=== PATIENT | male | born 1995 | race Caucasian/White ===

== ENCOUNTER 2021-01-18 18:58 | Emergency (ER) | payer SELFPAY ==
[~2021-01-18] VITALS: Ht 170.2 cm; Wt 102.0 kg
[2021-01-18] MEDS ORDERED: ALBUTEROL SULFATE 8GM INHALER. INH ONE (21:00)
[2021-01-18] MEDS ORDERED: AZITHROMYCIN 250 MG TABLET. PO ONE (21:00)
[2021-01-18] MEDS ORDERED: predniSONE 20 MG TABLET PO ONE (21:00)
--- NOTE | 2021-01-18 21:30 | RAD ---
AP chest. HISTORY: Cough AP view was taken of the chest. Lungs are clear. Heart is normal in size. There is no effusion. IMPRESSION: 1. No acute chest disease. Electronically signed by: Yuriy Cueto MD (01/18/2021 9:27 PM) [facility]
[2021-01-18 21:59] VITALS: BP 172/77
[2021-01-18] MEDS ORDERED: METH4TAB2 PO (22:15)
[2021-01-18] MEDS ORDERED: AZIT250T6 PO (22:15)
--- NOTE | 2021-01-18 22:15 | PHYS DOC ---
Past History Past Surgical History: Tonsillectomy Additional Past Surgical Histo: Left testical Alcohol Use: None General Adult EDM: Chief Complaint: COUGH HPI: HPI: Patient is a 25-year-old male who presents with cough, shortness of breath, headache for 6 days. Patient states he had a Covid test on Saturday which was negative. Patient denies fevers. Patient states "I usually get bronchitis every year and that is what this feels like". "I have lost all of my taste and smell". Patient has history of bronchitis, smoking. Review of Systems: Review of Systems: Constitutional: Denies fever or chills Eyes: Denies change in visual acuity HENT: Denies nasal congestion or sore throat Respiratory: Reports cough or shortness of breath Cardiovascular: Denies chest pain or edema GI: Denies abdominal pain, nausea, vomiting, bloody stools or diarrhea : Denies dysuria Musculoskeletal: Denies back pain or joint pain Integument: Denies rash Neurologic: Denies headache, focal weakness or sensory changes Endocrine: Denies polyuria or polydipsia Lymphatic: Denies swollen glands Psychiatric: Denies depression or anxiety Current Medications: Current Meds: Current Medications Medications (Trade) Dose Ordered Sig/Dariusz Start Time Stop Time Status Last Admin Dose Admin Albuterol Sulfate (Ventolin Hfa Inhaler) 1 puff 1X ONCE 01/18/21 21:00 01/18/21 21:12 DC 01/18/21 21:24 1 PUFF Azithromycin (Zithromax) 500 mg 1X ONCE 01/18/21 21:00 01/18/21 21:12 DC 01/18/21 21:28 500 MG Prednisone (Prednisone) 60 mg 1X ONCE 01/18/21 21:00 01/18/21 21:12 DC 01/18/21 21:28 60 MG Allergies: Allergies: Allergies Coded Allergies Type Severity Reaction Last Updated Verified bee venom protein (honey bee) Allergy Unknown 01/18/21 Yes sulfamethoxazole Allergy Unknown 01/18/21 Yes trimethoprim Allergy Unknown 01/18/21 Yes Physical Exam: PE: Constitutional: Well developed, well nourished, no acute distress, non-toxic appearance. [] HENT: Normocephalic, atraumatic, bilateral external ears normal, oropharynx moist, no oral exudates, nose normal. [] Eyes: PERRLA, EOMI, conjunctiva normal, no discharge. [] Neck: Normal range of motion, no tenderness, supple, no stridor. [] Cardiovascular:Heart rate regular rhythm, no murmur [] Lungs & Thorax: Bilateral breath sounds clear to auscultation [] Abdomen: Bowel sounds normal, soft, no tenderness, no masses, no pulsatile masses. [] Skin: Warm, dry, no erythema, no rash. [] Back: No tenderness, no CVA tenderness. [] Extremities: No tenderness, no cyanosis, no clubbing, ROM intact, no edema. [] Neurologic: Alert and oriented X 3, normal motor function, normal sensory function, no focal deficits noted. [] Psychologic: Affect normal, judgement normal, mood normal. [] Current Patient Data: Vital Signs: Vital Signs Date Time Temp Pulse Resp B/P (MAP) Pulse Ox O2 Delivery O2 Flow Rate FiO2 01/18/21 21:59 87 16 172/77 (108) 97 Room Air 01/18/21 19:23 98.2 EKG: EKG: [] Radiology/Procedures: Radiology/Procedures: []AP chest. HISTORY: Cough AP view was taken of the chest. Lungs are clear. Heart is normal in size. There is no effusion. IMPRESSION: 1. No acute chest disease. Electronically signed by: Yuriy Cueto MD (01/18/2021 9:27 PM) [facility] Heart Score: C/O Chest Pain: No Risk Factors: Risk Factors: DM, Current or recent (<one month) smoker, HTN, HLP, family history of CAD, obesity. Risk Scores: Score 0 - 3: 2.5% MACE over next 6 weeks - Discharge Home Score 4 - 6: 20.3% MACE over next 6 weeks - Admit for Clinical Observation Score 7 - 10: 72.7% MACE over next 6 weeks - Early Invasive Strategies Course & Med Decision Making: Course & Med Decision Making Pertinent Labs and Imaging studies reviewed. (See chart for details) [] 25-year-old male who presents with cough, shortness of breath, headache for 6 days. Patient states he has a history of bronchitis and usually gets this yearly. Patient is afebrile. Patient is hemodynamically stable. Patient given 60 mg of prednisone, 500 mg azithromycin, albuterol inhaler. Patient given prescription for Medrol Dosepak and also Z-Vernon at home. Chest x-ray was unremarkable. Discharge patient to home. Patient instructed to take ibuprofen and Tylenol for discomfort. Instructed patient to return to emergency room if he has an increase in shortness of breath. Patient states he understands discharge instructions and is appreciative. Josieon Disclaimer: Emmanuel Disclaimer: This electronic medical record was generated, in whole or in part, using a voice recognition dictation system. Departure Departure: Impression: Primary Impression: Bronchitis Disposition: HOME / SELF CARE / HOMELESS Condition: STABLE Referrals: PCP,NO (PCP) Patient Instructions: Acute Bronchitis, [id number] Additional Instructions: You were seen in the emergency room for cough and shortness of breath. Your chest x-ray was negative. You were given steroids, inhaler, antibiotics in the emergency room to help with symptoms. I am also sending you home with prescription for antibiotic and steroids. Please return emergency room if you have worsening symptoms or concerns. Ibuprofen Tylenol for headache. EMERGENCY DEPARTMENT GENERAL DISCHARGE INSTRUCTIONS Thank you for coming to [facility] (ED) today and trusting us with you care. We trust that you had a positivie experience in our Emergency Department. If you wish to speak to the department management, you may call the director at [phone]. YOUR FOLLOW UP INSTRUCTIONS ARE FOLLOWS: 1. Do you have a private Doctor? If you do not have a private doctor, please ask for a resource list of physicians or clinics that may be able to assist you with follow up care. 2. The Emergency Physician has interpreted your x-rays. The X-Ray specialist will also review them. If there is a change in the findings, you will be notified in 48 hours when at all possible. 3. A lab test or culture has been done, your results will be reviewed and you will be notified if you need a change in treatment. ADDITIONAL INSTRUCTIONS AND INFORMATION: 1. Your care today has been supervised by a physician who is specially trained in emergency care. Many problems require more than one evaluation for a complete diagnosis and treatment. We recommend that you schedule your follow up appointment as recommended to ensure complete treatment of you illness or injury. If you are unable to obtain follow up care and continue to have a problem, or if your condition worsens, we recommend that you return to the ED. 2. We are not able to safely determine your condition over the phone nor are we able to give sound medical advice over the phone. For these safety reasons, if you call for medical advice we will ask you to come to the ED for further evaluation. 3. If you have any questions regarding these discharge instructions please call the ED at [phone]. SAFETY INFORMATION: In the interest of safety, wellness, and injury prevention; we encourage you to wear your sealbelt, if you smoke; quite smoking, and we encourage family to use a protective helmet for bicycling and other sporting events that present an increased risk for head injury. IF YOUR SYMPTOMS WORSEN OR NEW SYMPTOMS DEVELOP, OR YOU HAVE CONCERNS ABOUT YOUR CONDITION; OR IF YOUR CONDITION WORSENS WHILE YOU ARE WAITING FOR YOUR FOLLOW UP APPOINTME NT; EITHER CONTACT YOUR PRIMARY CARE DOCTOR, THE PHYSICIAN WHOSE NAME AND NUMBER YOU WERE GIVEN, OR RETURN TO THE ED IMMEDIATELY. Scripts Azithromycin (AZITHROMYCIN TABLET) 250 Mg Tablet 1 PKG PO UD for bronchitis for 5 Days, #6 TAB 0 Refills 2 the first day followed by 1 for days 2-5 Prov: COLLIN OAKES APRN 01/18/21 Methylprednisolone (MEDROL) 4 Mg Tab.ds.pk 1 PKG PO UD for inflammation for 6 Days, #1 PKG 0 Refills Prov: COLLIN OAKES APRN 01/18/21 COLLIN OAKES APRN Jan 18, 2021 22:15
== END 2021-01-18 22:30 | disposition home or self-care (01) ==
LOC: ER 18:58
DX: J40 Bronchitis, not specified as acute or chronic (principal); Z91.030 Bee allergy status; Z88.2 Allergy status to sulfonamides; Z88.1 Allergy status to other antibiotic agents
CPT/HCPCS: 71045; 94640; 99283; J7512; 94664

== ENCOUNTER 2021-01-27 13:56 | Emergency (ER) | payer OTHER ==
[~2021-01-27] VITALS: Ht 177.8 cm; Wt 98.7 kg
[~2021-01-27 13:56] MED LIST: AZIT250T6 PO; METH4TAB2 PO
[2021-01-27 14:17] VITALS: BP 143/84
[2021-01-27] MEDS ORDERED: IBUPROFEN 600 MG TABLET. PO ONE (14:45)
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
== END 2021-01-27 16:00 | disposition home or self-care (01) ==
LOC: ER 13:56
DX: M54.2 Cervicalgia (principal); M54.6 Pain in thoracic spine; M54.5 Low back pain; Z88.2 Allergy status to sulfonamides; Z88.1 Allergy status to other antibiotic agents; Z91.030 Bee allergy status
CPT/HCPCS: 70450; 72072; 72100; 72125; 99285

== ENCOUNTER 2021-06-19 21:36 | Emergency (ER) | payer SELFPAY ==
[~2021-06-19] VITALS: Ht 177.8 cm; Wt 98.7 kg
--- NOTE | 2021-06-19 21:48 | PHYS DOC ---
Past History Past Medical History: Cancer Past Surgical History: Tonsillectomy Additional Past Surgical Histo: right testical removal Smoking: Non-smoker Alcohol Use: Occasionally Drug Use: None Adult General Chief Complaint Chief Complaint: ABDOMINAL PAIN HPI HPI Patient is a 26-year-old male presenting via POV for abdominal pain. Reports this is an acute on chronic issue. States this is been going on for months, admits eating fatty foods and alcohol exacerbates it. States he drank a watermelon conn [place] and had QT pizza late last night/early this morning which exacerbated his symptoms. Reports he has had difficulty tolerating p.o. intake due to 8/10 severity sharp epigastric and right upper quadrant pain. States this is been more constant than usual which concerned him prompting him to come in for evaluation. Has prior history of testicular cancer but otherwise has no other medical issues and takes no medications on a daily basis. Review of Systems Review of Systems Fourteen body systems of review of systems have been reviewed. See HPI for pertinent positives and negative responses, other trujillo all other systems are negative, non-pertinent or non-contributory Allergies Allergies Allergies Coded Allergies Type Severity Reaction Last Updated Verified bee venom protein (honey bee) Allergy Unknown 01/18/21 Yes sulfamethoxazole Allergy Unknown 01/18/21 Yes trimethoprim Allergy Unknown 01/18/21 Yes Physical Exam Physical Exam Constitutional: Well developed, well nourished, no acute distress, non-toxic appearance. HENT: Normocephalic, atraumatic, bilateral external ears normal, oropharynx moist, no oral exudates, nose normal. Eyes: PERRLA, EOMI, conjunctiva normal, no discharge. Neck: Normal range of motion, no tenderness, supple, no stridor. Cardiovascular: Heart rate regular, sinus rhythm, no murmurs rubs or gallops Lungs & Thorax: Bilateral breath sounds clear to auscultation Abdomen: Bowel sounds normal, soft with voluntary guarding present, right upper quadrant and epigastric tenderness to palpation without rebound, no masses, no pulsatile masses. Nonsurgical abdomen, no peritoneal signs Skin: Warm, dry, no erythema, no rash. Back: No tenderness, no CVA tenderness. Extremities: No tenderness, no cyanosis, no clubbing, ROM intact, no edema. Neurologic: Alert and oriented X 3, grossly normal motor & sensory function, no focal deficits noted. Psychologic: Affect normal, judgement normal, mood normal. Current Patient Data Vital Signs Vital Signs Date Time Temp Pulse Resp B/P (MAP) Pulse Ox O2 Delivery O2 Flow Rate FiO2 06/19/21 21:36 98.1 65 18 162/105 (124) 97 Room Air Vital Signs Date Time Temp Pulse Resp B/P (MAP) Pulse Ox O2 Delivery O2 Flow Rate FiO2 06/20/21 00:00 76 18 135/68 (90) 97 Room Air 06/19/21 21:36 98.1 Lab Results Laboratory Tests Test 06/19/21 21:55 White Blood Count 10.3 x10^3/uL Red Blood Count 4.90 x10^6/uL Hemoglobin 15.5 g/dL Hematocrit 45.7 % Mean Corpuscular Volume 93 fL Mean Corpuscular Hemoglobin 32 pg Mean Corpuscular Hemoglobin Concent 34 g/dL Red Cell Distribution Width 12.6 % Platelet Count 290 x10^3/uL Neutrophils (%) (Auto) 54 % Lymphocytes (%) (Auto) 35 % Monocytes (%) (Auto) 9 % Eosinophils (%) (Auto) 2 % Basophils (%) (Auto) 1 % Neutrophils # (Auto) 5.5 x10^3uL Lymphocytes # (Auto) 3.6 x10^3/uL Monocytes # (Auto) 0.9 x10^3/uL Eosinophils # (Auto) 0.2 x10^3/uL Basophils # (Auto) 0.1 x10^3/uL Urine Collection Type Unknown Urine Color Yellow Urine Clarity Clear Urine pH 7.5 Urine Specific Herreid 1.025 Urine Protein Trace Urine Glucose (UA) Neg mg/dL Urine Ketones (Stick) Neg mg/dL Urine Blood Trace Urine Nitrite Neg Urine Bilirubin Neg Urine Urobilinogen Dipstick 0.2 mg/dL Urine Leukocyte Esterase Neg Urine RBC 1-2 /HPF Urine WBC 1-4 /HPF Urine Squamous Epithelial Cells Few /LPF Urine Bacteria Few /HPF Sodium Level 140 mmol/L Potassium Level 4.3 mmol/L Chloride Level 104 mmol/L Carbon Dioxide Level 25 mmol/L Anion Gap 11 Blood Urea Nitrogen 12 mg/dL Creatinine 1.0 mg/dL Estimated GFR (Cockcroft-Gault) 91.8 BUN/Creatinine Ratio 12 Glucose Level 104 mg/dL Calcium Level 8.9 mg/dL Total Bilirubin 0.3 mg/dL Aspartate Amino Transf (AST/SGOT) 95 U/L Alanine Aminotransferase (ALT/SGPT) 241 U/L Alkaline Phosphatase 94 U/L Total Protein 7.5 g/dL Albumin 4.2 g/dL Albumin/Globulin Ratio 1.3 Lipase 104 U/L Urine Opiates Screen Neg Urine Methadone Screen Neg Urine Barbiturates Neg Urine Phencyclidine Screen Neg Urine Amphetamine/Methamphetamine Neg Urine Benzodiazepines Screen Neg Urine Cocaine Screen Neg Urine Cannabinoids Screen Neg Ethyl Alcohol Level < 10 mg/dL Urine Ethyl Alcohol Neg Current Medications Medications (Trade) Dose Ordered Sig/Dariusz Route PRN Reason Start Time Stop Time Status Last Admin Dose Admin Sodium Chloride 1,000 ml @ 100 mls/hr Q10H IV 06/19/21 22:15 06/20/21 00:17 DC 06/19/21 23:00 Morphine Sulfate (Morphine 4mg Syringe) 4 mg 1X ONCE IV 06/19/21 22:15 06/19/21 22:16 DC 06/19/21 23:06 Iohexol (Omnipaque 300 Mg/ml) 75 ml 1X ONCE IV 06/19/21 22:15 06/19/21 22:19 DC 06/19/21 22:32 Metoclopramide HCl (Reglan Vial) 10 mg 1X ONCE IVP 06/19/21 22:30 06/19/21 22:34 DC 06/19/21 23:05 EKG EKG [] Radiology/Procedures Radiology/Procedures EXAM: CT Abdomen and Pelvis with IV contrast CLINICAL HISTORY: Reason: ruq pain, OMNI 300, 75ml / Spl. Instructions: / History: . COMPARISON: none TECHNIQUE: Helical CT of the abdomen and pelvis was performed following the administration of intravenous contrast. Axial, coronal and sagittal reformatted images were generated. PQRS compliance statement - One or more of the following individualized dose reduction techniques were utilized for this study: 1. Automated exposure control 2. Adjustment of the mA and/or kV according to patient size 3. Use of iterative reconstruction technique FINDINGS: Lower Chest: Lung bases are clear. Abdomen and Pelvis: Hepatic hypoattenuation, fatty liver. Enlargement of the left hepatic lobe. Liver is enlarged. Spleen, adrenal glands and pancreas are unremarkable. Symmetric nephrograms. No focal renal lesion. No hydronephrosis. No hydroureter. Bladder is unremarkable. Moderate colonic stool content is seen. No small or large bowel dilatation. No bowel obstruction. Trace fat-containing periumbilical hernia is seen. Appendix is normal. No abdominal or pelvic ascites. No abdominal pelvic lymphadenopathy. There is normal in caliber. Bones: No aggressive osseous lesion. IMPRESSION: 1. Moderate colonic stool content is seen. No bowel obstruction. 2. Hepatomegaly. Fatty liver. Electronically signed by: James Sevilla MD (06/19/2021 10:56 PM) [facility] Heart Score C/O Chest Pain: No Risk Factors: Risk Factors: DM, Current or recent (<one month) smoker, HTN, HLP, family history of CAD, obesity. Risk Scores: Risk Factors: DM, Current or recent (<one month) smoker, HTN, HLP, family history of CAD, obesity. Course & Med Decision Making Course & Med Decision Making ABCs unremarkable HPI physical exam and comprehensive ER work-up nonconcerning for any emergent or surgical issues. I reviewed and disclosed all findings with patient I discussed colonic stool burden and patient with IBS. Stool softener and continued supportive care practices discussed with close outpatient follow-up on this matter advised I disclosed finding of hepatomegaly and fatty liver with slight transaminitis. Patient has known history of this, it is not a new finding. Likely due to diet and weight in etiology, educated on this at length Also discussed potential for pancreatitis versus cholecystitis without any emergent or surgical findings requiring further work-up or hospitalization at present. Close outpatient surgery with recommendations for cessation of alcohol and fatty and spicy foods recommended Ultimately, I discussed at length there was little indication for further diagnostic work-up and/or need for hospitalization and inpatient he is symptoms improved with IV fluid rehydration, IV nausea medicine and IV pain medication Close outpatient primary care follow-up with recommendations for close outpatient surgery consultation recommended. Strict return cautions discussed with understanding verbalized by patient. All questions and concerns addressed prior to ER departure Dragon Disclaimer Dragon Disclaimer This electronic medical record was generated, in whole or in part, using a voice recognition dictation system. Departure Departure: Impression: Primary Impression: Abdominal pain Additional Impressions: Irritable bowel syndrome with constipation Hepatomegaly Transaminitis Disposition: HOME / SELF CARE / HOMELESS Condition: STABLE Referrals: PCP,EVE (PCP) MERVIN BROWNING MD Patient Instructions: Abdominal Pain (Nonspecific) Additional Instructions: You have been evaluated in the Emergency Department today for abdominal pain. Your evaluation was not suggestive of any emergent condition requiring medical intervention at this time. However, some abdominal problems make take more time to appear. Therefore, it is important for you to watch for any new symptoms or worsening of your current condition. Please follow up with your primary care physician as needed. If you do not have a primary doctor, you can call your insurance company to find one. If you do not have insurance, you can go to the finance/registration department for more assistance. As disclosed, please improve your diet avoiding fatty/spicy foods and highly caffeinated beverages. In addition, alcohol cessation is advised as we see an enlarged liver with elevated enzymes which will require further outpatient follow-up. Surgery consultation might be indicated Return to the Emergency Department if you experience worsening pain, persistent fevers greater than 100.4, recurrent vomiting, blood in vomit, blood in stool, dark tarry stool, chest pain, difficulty breathing, or any other concerning symptoms. Problem Qualifiers MARGI STODDARD DO Jun 19, 2021 21:47
[2021-06-19] MEDS ORDERED: IOHEXOL 300 MG/ML 75 ML VIAL. IV ONE (22:15)
[2021-06-19] MEDS ORDERED: IV NORMAL SALINE 1,000ML 1,000 ML IV SCH (22:15)
[2021-06-19] MEDS ORDERED: MORPHINE SULFATE 4 MG/ML DISP.SYRIN. IV ONE (22:15)
[2021-06-19 22:28] LABS: BASO # 0.1 x10^3/uL (0.0-0.2); BASO % 1 % (0-3); EOS # 0.2 x10^3/uL (0.0-0.7); EOS % 2 % (0-3); HEMATOCRIT 45.7 % (39.0-53.0); HEMOGLOBIN 15.5 g/dL (13.0-17.5); LYMPH # 3.6 x10^3/uL (1.0-4.8); LYMPH % 35 % (24-48); MEAN CORPUSCULAR HEMOGLOBIN 32 pg (25-35); MEAN CORPUSCULAR HGB CONC 34 g/dL (31-37); MEAN CORPUSCULAR VOLUME 93 fL (79-100); MONO # 0.9 x10^3/uL (0.0-1.1); MONO % 9 % (0-9); NEUT # 5.5 x10^3uL (1.8-7.7); NEUT % 54 % (31-73); PLATELET COUNT 290 x10^3/uL (140-400); RED CELL DISTRIBUTION WIDTH 12.6 % (11.5-14.5); WHITE BLOOD COUNT 10.3 x10^3/uL (4.0-11.0)
[2021-06-19] MEDS ORDERED: METOCLOPRAMIDE HCL 10 MG/2 ML VIAL. IVP ONE (22:30)
[2021-06-19 22:34] LABS: CALCIUM 8.9 mg/dL (8.5-10.1); GFR 91.8; POTASSIUM 4.3 mmol/L (3.5-5.1)
[2021-06-19 22:36] LABS: BARBITURATES NEG (NEG); BENZODIAZEPINES NEG (NEG); CANNABINOIDS NEG (NEG); COCAINE NEG (NEG); METHADONE NEG (NEG); OPIATES NEG (NEG); PHENCYCLIDINE NEG (NEG)
[2021-06-19 22:37] LABS: AMPHETAMINE/METHAMPHETAMINE NEG (NEG)
[2021-06-19 22:38] LABS: CLARITY,URINE CLEAR; COLOR,URINE YELLOW
[2021-06-19 22:39] LABS: BACTERIA,URINE FEW /HPF (0-FEW); BILIRUBIN,URINE NEG (NEG); GLUCOSE,URINE NEG (NEG); NITRITE,URINE NEG (NEG); SQUAMOUS EPITHELIAL CELL,UR FEW /LPF; UROBILINOGEN,URINE 0.2 mg/dL (0.2 mg/dL)
[2021-06-19 22:41] LABS: ALBUMIN 4.2 g/dL (3.4-5.0); ALBUMIN/GLOBULIN RATIO 1.3 (1.0-1.7); TOTAL BILIRUBIN 0.3 mg/dL (0.2-1.0); TOTAL PROTEIN 7.5 g/dL (6.4-8.2)
--- NOTE | 2021-06-19 22:58 | RAD ---
EXAM: CT Abdomen and Pelvis with IV contrast CLINICAL HISTORY: Reason: ruq pain, OMNI 300, 75ml / Spl. Instructions: / History: . COMPARISON: none TECHNIQUE: Helical CT of the abdomen and pelvis was performed following the administration of intrave nous contrast. Axial, coronal and sagittal reformatted images were generated. PQRS compliance statement - One or more of the following individualized dose reduction techniques wer e utilized for this study: 1. Automated exposure control 2. Adjustment of the mA and/or kV according to patient size 3. Use of iterative reconstruction technique FINDINGS: Lower Chest: Lung bases are clear. Abdomen and Pelvis: Hepatic hypoattenuation, fatty liver. Enlargement of the left hepatic lobe. Liver is enlarged. Spleen , adrenal glands and pancreas are unremarkable. Symmetric nephrograms. No focal renal lesion. No hydr onephrosis. No hydroureter. Bladder is unremarkable. Moderate colonic stool content is seen. No small or large bowel dilatation. No bowel obstruction. Tra ce fat-containing periumbilical hernia is seen. Appendix is normal. No abdominal or pelvic ascites. No abdominal pelvic lymphadenopathy. There is normal in caliber. Bones: No aggressive osseous lesion. IMPRESSION: 1. Moderate colonic stool content is seen. No bowel obstruction. 2. Hepatomegaly. Fatty liver. Electronically signed by: James Sevilla MD (06/19/2021 10:56 PM) [facility]
[2021-06-20] VITALS: BP 135/68
== END 2021-06-20 00:10 | disposition home or self-care (01) ==
LOC: ER 21:36
DX: K58.1 Irritable bowel syndrome with constipation (principal); R16.0 Hepatomegaly, not elsewhere classified; R74.01 Elevation of levels of liver transaminase levels; Z88.1 Allergy status to other antibiotic agents; Z88.2 Allergy status to sulfonamides; Z91.030 Bee allergy status
CPT/HCPCS: 36415; 74177; 80053; 80307; 81001; 83690; 85025; 96361; 96374; 96375; 99285; G0480; J2270; J2765; J7030; Q9967